=== PATIENT | female | born 1955 | race Caucasian/White ===

== ENCOUNTER 2017-09-18 17:39 | Inpatient (IN) | payer MEDICARE, MEDICAID ==
[~2017-09-18] VITALS: Ht 177.8 cm; Wt 90.9 kg
[2017-09-18] MEDS ORDERED: RAME8TAB8 PO (18:32)
[2017-09-18] MEDS ORDERED: QUET200T PO (18:32)
[2017-09-18] MEDS ORDERED: IBUP-2070 PO (18:32)
[2017-09-18] MEDS ORDERED: DIAZ10 PO (18:32)
[2017-09-18] MEDS ORDERED: BACL10TA PO (18:32)
[2017-09-18] MEDS ORDERED: ZOLP10TA7 PO (18:32)
[2017-09-18] MEDS ORDERED: IBUPROFEN 600 MG TABLET PO ONE (18:45)
[2017-09-18] MEDS ORDERED: LORazepam 1 MG TABLET PO ONE (18:45)
[2017-09-18 19:26] LABS: BASOPHILS % (AUTO) 0.9 % (0.0-2.0); EOSINOPHILS % (AUTO) 3.8 % (1.0-6.0); HEMATOCRIT 36.7 % (36-46); LYMPHOCYTES # (AUTO) 2.3 K/uL (1.0-4.8); LYMPHOCYTES % (AUTO) 20.8 % (22.0-44.0); MEAN CORPUSCULAR HEMOGLOBIN 26.7 pg (26.0-34.0); MEAN CORPUSCULAR HGB CONC 32.6 G/dL (31.0-37.0); MEAN CORPUSCULAR VOLUME 82 fL (80-100); MONOCYTES # (AUTO) 1.3 K/uL (0.1-1.0); MONOCYTES % (AUTO) 11.3 % (2.0-9.0); NEUTROPHILS # (AUTO) 7.1 K/uL (1.8-7.7); NEUTROPHILS % (AUTO) 63.2 % (40.0-70.0); PLATELET COUNT (AUTO) 377 K/uL (150-450); RED BLOOD CELL COUNT(AUTO) 4.48 MIL/uL (4.00-5.20)
[2017-09-18 19:39] LABS: ANION GAP 7 mmol/L (8-16); CALCIUM, TOTAL 9.1 mg/dL (8.8-10.5); CARBON DIOXIDE 29 mmol/L (22-29); CHLORIDE 103 mmol/L (98-107); CREATININE 0.75 mg/dL (0.60-1.30); GLOMERULAR FILTR. RATE CALC > 60 mL/min (>60); GLUCOSE,RANDOM 113 mg/dL (70-110); POTASSIUM 4.3 mmol/L (3.5-5.1); SODIUM SERUM 139 mmol/L (136-145); UREA NITROGEN, BLOOD 28 mg/dL (7-18)
[2017-09-18 19:44] LABS: ALANINE AMINOTRANSFERASE 41 U/L (12-78); ALBUMIN 2.8 g/dL (3.4-5.0); ALKALINE PHOSPHATASE 110 U/L (46-116); ASPARTATE AMINOTRANSFERASE 31 U/L (15-37); BILIRUBIN,TOTAL 0.3 mg/dL (0.1-1.0); TOTAL PROTEIN, SERUM 7.6 g/dL (6.4-8.2)
[2017-09-18 22:31] VITALS: BP 105/63
[2017-09-19] VITALS (7 sets, daily range): BP systolic 117–153; BP diastolic 64–84
[2017-09-19] MEDS ORDERED: ONDANSETRON HCL 4 MG/2 ML VIAL IVP PRN
[2017-09-19] MEDS ORDERED: IPRATROPIUM BROMIDE 0.5 MG/2.5 ML NEB SOLUTION NEB PRN
[2017-09-19] MEDS ORDERED: 0.9% SODIUM CHLORIDE 10 ML SYRINGE IVP PRN
[2017-09-19] MEDS ORDERED: ZOLPIDEM TARTRATE 5 MG TABLET PO PRN
[2017-09-19] MEDS ORDERED: ALBUTEROL SULFATE 2.5 MG/0.5 ML NEB SOLUTION NEB PRN
[2017-09-19] MEDS: IPRATROPIUM BROMIDE 0.5 MG/2.5 ML NEB SOLUTION NEB SCH ×4 (02:08→20:45)
[2017-09-19] MEDS: ALBUTEROL SULFATE 2.5 MG/0.5 ML NEB SOLUTION NEB SCH ×4 (02:08→20:45)
[2017-09-19] MEDS: ZOLPIDEM TARTRATE 10 MG TABLET PO PRN ×2 (02:37→20:36)
[2017-09-19 05:52] LABS: BASOPHILS % (AUTO) 0.8 % (0.0-2.0); EOSINOPHILS % (AUTO) 5.5 % (1.0-6.0); HEMATOCRIT 34.4 % (36-46); HEMOGLOBIN 11.6 g/dL (12.0-16.0); LYMPHOCYTES # (AUTO) 2.4 K/uL (1.0-4.8); LYMPHOCYTES % (AUTO) 28.4 % (22.0-44.0); MEAN CORPUSCULAR HEMOGLOBIN 27.3 pg (26.0-34.0); MEAN CORPUSCULAR HGB CONC 33.6 G/dL (31.0-37.0); MEAN CORPUSCULAR VOLUME 81 fL (80-100); MONOCYTES % (AUTO) 11.9 % (2.0-9.0); NEUTROPHILS # (AUTO) 4.5 K/uL (1.8-7.7); NEUTROPHILS % (AUTO) 53.4 % (40.0-70.0); PLATELET COUNT (AUTO) 401 K/uL (150-450); RED BLOOD CELL COUNT(AUTO) 4.23 MIL/uL (4.00-5.20); RED CELL DISTRIBUTION WIDTH 13.8 % (11.5-14.5)
[2017-09-19 07:08] LABS: ANION GAP 7 mmol/L (8-16); CALCIUM, TOTAL 8.9 mg/dL (8.8-10.5); CARBON DIOXIDE 30 mmol/L (22-29); CHLORIDE 105 mmol/L (98-107); CREATININE 0.65 mg/dL (0.60-1.30); GLOMERULAR FILTR. RATE CALC > 60 mL/min (>60); GLUCOSE,RANDOM 95 mg/dL (70-110); POTASSIUM 4.1 mmol/L (3.5-5.1); SODIUM SERUM 142 mmol/L (136-145); THYROID STIMULATING HORMONE 2.72 uIU/mL (0.36-3.74); UREA NITROGEN, BLOOD 21 mg/dL (7-18)
[2017-09-19] MEDS: PANTOPRAZOLE SODIUM 40 MG/VIAL IVP SCH (09:43)
[2017-09-19] MEDS: HYDROCODONE/ACETAMINOPHEN 5-325 MG TABLET PO PRN (09:43)
[2017-09-19] MEDS: HEPARIN SODIUM,PORCINE 5,000 UNITS/ML VIAL SQ SCH ×4 (09:45→23:28)
[2017-09-19] MEDS ORDERED: SODIUM CL IRRIG SOLN BOTTLE 250 ML IRRIG ONE (13:48)
[2017-09-19] MEDS: DIAZEPAM 5 MG TABLET PO SCH (20:18)
[2017-09-19] MEDS: BACLOFEN 10 MG TABLET PO SCH (20:19)
[2017-09-19] MEDS: QUEtiapine FUMARATE 200 MG TABLET PO SCH (20:19)
[2017-09-19] MEDS: MORPHINE SULFATE 4 MG/ML SYRINGE IVP PRN (22:04)
[2017-09-20] MEDS: ALBUTEROL SULFATE 2.5 MG/0.5 ML NEB SOLUTION NEB SCH ×4 (01:48→20:38)
[2017-09-20] MEDS: IPRATROPIUM BROMIDE 0.5 MG/2.5 ML NEB SOLUTION NEB SCH ×4 (01:48→20:38)
[2017-09-20 04:31] VITALS: BP 142/73
[2017-09-20 06:06] LABS: BASOPHILS % (AUTO) 1.2 % (0.0-2.0); EOSINOPHILS % (AUTO) 2.9 % (1.0-6.0); HEMATOCRIT 34.7 % (36-46); HEMOGLOBIN 11.8 g/dL (12.0-16.0); LYMPHOCYTES # (AUTO) 3.4 K/uL (1.0-4.8); LYMPHOCYTES % (AUTO) 33.3 % (22.0-44.0); MEAN CORPUSCULAR HEMOGLOBIN 27.3 pg (26.0-34.0); MEAN CORPUSCULAR HGB CONC 33.9 G/dL (31.0-37.0); MEAN CORPUSCULAR VOLUME 81 fL (80-100); MONOCYTES % (AUTO) 10.2 % (2.0-9.0); NEUTROPHILS # (AUTO) 5.4 K/uL (1.8-7.7); NEUTROPHILS % (AUTO) 52.4 % (40.0-70.0); PLATELET COUNT (AUTO) 430 K/uL (150-450); RED BLOOD CELL COUNT(AUTO) 4.31 MIL/uL (4.00-5.20); RED CELL DISTRIBUTION WIDTH 13.8 % (11.5-14.5)
[2017-09-20 06:37] LABS: ANION GAP 10 mmol/L (8-16); CARBON DIOXIDE 25 mmol/L (22-29); CHLORIDE 104 mmol/L (98-107); GLOMERULAR FILTR. RATE CALC > 60 mL/min (>60); GLUCOSE,RANDOM 100 mg/dL (70-110); POTASSIUM 3.9 mmol/L (3.5-5.1); SODIUM SERUM 139 mmol/L (136-145); UREA NITROGEN, BLOOD 16 mg/dL (7-18)
[2017-09-20 07:27] VITALS: BP 144/77
[2017-09-20] MEDS: HEPARIN SODIUM,PORCINE 5,000 UNITS/ML VIAL SQ SCH ×3 (08:00→23:30)
[2017-09-20 11:43] VITALS: BP 138/74
[2017-09-20] MEDS: PANTOPRAZOLE SODIUM 40 MG/VIAL IVP SCH (11:46)
[2017-09-20] MEDS ORDERED: RINGERS SOLUTION,LACTATED 1,000 ML IV ONE ×2 (14:30→18:14)
[2017-09-20 15:51] VITALS: BP 128/82
[2017-09-20] MEDS ORDERED: CLINDAMYCIN PHOS 150 MG/ML 4 ML VIAL ONE (17:18)
[2017-09-20] MEDS ORDERED: SODIUM CHLORIDE 0.9% 100 ML ONE (17:19)
[2017-09-20 20:00] VITALS: BP 152/88
[2017-09-20] MEDS: HYDROCODONE/ACETAMINOPHEN 5-325 MG TABLET PO PRN (20:20)
[2017-09-20] MEDS: BACLOFEN 10 MG TABLET PO SCH (21:29)
[2017-09-20] MEDS: QUEtiapine FUMARATE 200 MG TABLET PO SCH (21:29)
[2017-09-20] MEDS: DIAZEPAM 5 MG TABLET PO SCH (21:30)
[2017-09-20] MEDS: ROZEREM 8 MG PO SCH ×2 (21:32→21:34)
[2017-09-20 23:27] VITALS: BP 130/67
[2017-09-21] MEDS: MORPHINE SULFATE 4 MG/ML SYRINGE IVP PRN ×2 (00:29→15:21)
[2017-09-21] MEDS: ALBUTEROL SULFATE 2.5 MG/0.5 ML NEB SOLUTION NEB SCH ×4 (02:00→20:00)
[2017-09-21] MEDS: IPRATROPIUM BROMIDE 0.5 MG/2.5 ML NEB SOLUTION NEB SCH ×4 (02:00→20:00)
[2017-09-21 03:10] VITALS: BP 115/67
[2017-09-21] MEDS ORDERED: PROPOFOL 1% 20 ML VIAL IVP ONE (04:59)
[2017-09-21] MEDS ORDERED: FentaNYL CITRATE-PF 100 MCG/2 ML VIAL IVP ONE (04:59)
[2017-09-21] MEDS ORDERED: DEXAMETHASONE SOD PHOS 4 MG/ML VIAL IVP ONE (04:59)
[2017-09-21] MEDS ORDERED: ONDANSETRON HCL 4 MG/2 ML VIAL IVP ONE (04:59)
[2017-09-21] MEDS ORDERED: MIDAZOLAM HCL 2 MG/2 ML VIAL IVP ONE (04:59)
[2017-09-21] MEDS ORDERED: LIDOCAINE HCL/PF 2% 5 ML VIAL IM ONE (04:59)
[2017-09-21] MEDS: HYDROCODONE/ACETAMINOPHEN 5-325 MG TABLET PO PRN ×2 (06:48→18:06)
[2017-09-21] MEDS: PANTOPRAZOLE SODIUM 40 MG/VIAL IVP SCH (08:39)
[2017-09-21] MEDS: HEPARIN SODIUM,PORCINE 5,000 UNITS/ML VIAL SQ SCH ×2 (08:39→17:13)
[2017-09-21] MEDS: ASCORBIC ACID 500 MG TABLET PO SCH (08:40)
[2017-09-21] MEDS: AMINO ACIDS/PROTEIN HYDROLYS 30 ML TUBE PO SCH (08:40)
[2017-09-21] MEDS: ZINC SULFATE 220 MG CAPSULE PO SCH (08:40)
[2017-09-21] MEDS: MULTIVITAMINS WITH MINERALS, THERAPEUTIC TABLET PO SCH (08:40)
[2017-09-21 09:32] VITALS: BP 108/61
[2017-09-21 12:40] VITALS: BP 130/73
[2017-09-21] MEDS ORDERED: INFLUENZA VIRUS VACCINE QVS 2017-18 (3YR+)/PF 60 MCG/0.5 ML SYRINGE IM ONE (15:15)
[2017-09-21 15:22] VITALS: BP 133/67
[2017-09-21] MEDS: DIAZEPAM 5 MG TABLET PO SCH (20:09)
[2017-09-21] MEDS: ROZEREM 8 MG PO SCH (20:09)
[2017-09-21] MEDS: BACLOFEN 10 MG TABLET PO SCH (20:09)
[2017-09-21] MEDS: QUEtiapine FUMARATE 200 MG TABLET PO SCH (20:09)
[2017-09-21] MEDS: ZOLPIDEM TARTRATE 10 MG TABLET PO PRN (20:09)
[2017-09-21 20:58] VITALS: BP 164/92
[2017-09-22] VITALS (7 sets, daily range): BP systolic 122–157; BP diastolic 71–98
[2017-09-22] MEDS: HEPARIN SODIUM,PORCINE 5,000 UNITS/ML VIAL SQ SCH ×3 (00:05→18:05)
[2017-09-22] MEDS: ALBUTEROL SULFATE 2.5 MG/0.5 ML NEB SOLUTION NEB SCH ×4 (02:00→20:00)
[2017-09-22] MEDS: IPRATROPIUM BROMIDE 0.5 MG/2.5 ML NEB SOLUTION NEB SCH ×4 (02:00→20:00)
[2017-09-22] MEDS: AMINO ACIDS/PROTEIN HYDROLYS 30 ML TUBE PO SCH (08:00)
[2017-09-22] MEDS: PANTOPRAZOLE SODIUM 40 MG/VIAL IVP SCH (10:13)
[2017-09-22] MEDS: ASCORBIC ACID 500 MG TABLET PO SCH (10:13)
[2017-09-22] MEDS: MULTIVITAMINS WITH MINERALS, THERAPEUTIC TABLET PO SCH (10:13)
[2017-09-22] MEDS: ZINC SULFATE 220 MG CAPSULE PO SCH (10:13)
[2017-09-22] MEDS: HYDROCODONE/ACETAMINOPHEN 5-325 MG TABLET PO PRN ×2 (10:14→22:33)
[2017-09-22] MEDS ORDERED: SODIUM CHLORIDE 0.9% IRRIG BTL 1,000 ML IRRIG ONE (11:03)
[2017-09-22] MEDS ORDERED: SODIUM CHLORIDE 0.9% 500 ML IV ONE (11:19)
[2017-09-22] MEDS: CLINDAMYCIN 600 MG/D5% WATER 50 ML IV SCH ×2 (11:22→18:04)
[2017-09-22] MEDS: BACLOFEN 10 MG TABLET PO SCH (22:32)
[2017-09-22] MEDS: QUEtiapine FUMARATE 200 MG TABLET PO SCH (22:33)
[2017-09-22] MEDS: ROZEREM 8 MG PO SCH (22:33)
[2017-09-22] MEDS: DIAZEPAM 5 MG TABLET PO SCH (22:33)
[2017-09-23] MEDS: CLINDAMYCIN 600 MG/D5% WATER 50 ML IV SCH ×3 (00:56→18:02)
[2017-09-23] MEDS: HEPARIN SODIUM,PORCINE 5,000 UNITS/ML VIAL SQ SCH ×4 (00:56→22:56)
[2017-09-23] MEDS: IPRATROPIUM BROMIDE 0.5 MG/2.5 ML NEB SOLUTION NEB SCH ×4 (02:00→20:00)
[2017-09-23] MEDS: ALBUTEROL SULFATE 2.5 MG/0.5 ML NEB SOLUTION NEB SCH ×4 (02:00→20:00)
[2017-09-23] MEDS: HYDROCODONE/ACETAMINOPHEN 5-325 MG TABLET PO PRN ×3 (02:45→15:00)
[2017-09-23] MEDS: ZOLPIDEM TARTRATE 10 MG TABLET PO PRN (02:53)
[2017-09-23] MEDS: AMINO ACIDS/PROTEIN HYDROLYS 30 ML TUBE PO SCH (08:00)
[2017-09-23 08:08] VITALS: BP 129/74
[2017-09-23] MEDS: ASCORBIC ACID 500 MG TABLET PO SCH (08:17)
[2017-09-23] MEDS: PANTOPRAZOLE SODIUM 40 MG/VIAL IVP SCH (08:17)
[2017-09-23] MEDS: MULTIVITAMINS WITH MINERALS, THERAPEUTIC TABLET PO SCH (08:17)
[2017-09-23] MEDS: ZINC SULFATE 220 MG CAPSULE PO SCH (08:20)
[2017-09-23 11:31] VITALS: BP 121/57
[2017-09-23 15:10] VITALS: BP 123/74
[2017-09-23 19:33] VITALS: BP 137/81
[2017-09-23] MEDS ORDERED: SODIUM PHOS/SODIUM BIPHOS 133 ML ENEMA PR ONE (21:45)
[2017-09-23] MEDS: DIAZEPAM 5 MG TABLET PO SCH (22:55)
[2017-09-23] MEDS: DOCUSATE SODIUM 100 MG CAPSULE PO SCH (22:55)
[2017-09-23] MEDS: BACLOFEN 10 MG TABLET PO SCH (22:56)
[2017-09-23] MEDS: ROZEREM 8 MG PO SCH (22:56)
[2017-09-23] MEDS: QUEtiapine FUMARATE 200 MG TABLET PO SCH (22:56)
[2017-09-23 23:00] VITALS: BP 151/77
[2017-09-24] MEDS: ZOLPIDEM TARTRATE 10 MG TABLET PO PRN (00:54)
[2017-09-24] MEDS: CLINDAMYCIN 600 MG/D5% WATER 50 ML IV SCH ×3 (00:54→16:53)
[2017-09-24] MEDS: HYDROCODONE/ACETAMINOPHEN 5-325 MG TABLET PO PRN (00:54)
[2017-09-24] MEDS: IPRATROPIUM BROMIDE 0.5 MG/2.5 ML NEB SOLUTION NEB SCH ×4 (02:00→20:00)
[2017-09-24] MEDS: ALBUTEROL SULFATE 2.5 MG/0.5 ML NEB SOLUTION NEB SCH ×4 (02:00→20:00)
[2017-09-24 05:30] VITALS: BP 136/80
[2017-09-24 07:40] VITALS: BP 114/80
[2017-09-24] MEDS: HEPARIN SODIUM,PORCINE 5,000 UNITS/ML VIAL SQ SCH ×2 (07:55→14:37)
[2017-09-24] MEDS: ASCORBIC ACID 500 MG TABLET PO SCH (07:55)
[2017-09-24] MEDS: PANTOPRAZOLE SODIUM 40 MG/VIAL IVP SCH (07:55)
[2017-09-24] MEDS: ZINC SULFATE 220 MG CAPSULE PO SCH (07:55)
[2017-09-24] MEDS: MULTIVITAMINS WITH MINERALS, THERAPEUTIC TABLET PO SCH (07:55)
[2017-09-24] MEDS: DOCUSATE SODIUM 100 MG CAPSULE PO SCH ×2 (07:55→21:00)
[2017-09-24] MEDS: AMINO ACIDS/PROTEIN HYDROLYS 30 ML TUBE PO SCH (07:58)
[2017-09-24 11:33] VITALS: BP 145/94
[2017-09-24] MEDS ORDERED: BISACODYL 10 MG RECTAL RECTAL SUPPOSITORY PR PRN (13:30)
[2017-09-24] MEDS ORDERED: SODIUM PHOS/SODIUM BIPHOS 133 ML ENEMA PR PRN (13:30)
[2017-09-24 15:45] VITALS: BP 144/96
[2017-09-24] MEDS: IBUPROFEN 600 MG TABLET PO PRN (16:53)
[2017-09-24 19:31] VITALS: BP 125/78
[2017-09-24] MEDS: QUEtiapine FUMARATE 200 MG TABLET PO SCH (22:06)
[2017-09-24] MEDS: ROZEREM 8 MG PO SCH (22:06)
[2017-09-24] MEDS: DIAZEPAM 5 MG TABLET PO SCH (22:06)
[2017-09-24] MEDS: BACLOFEN 10 MG TABLET PO SCH (22:06)
[2017-09-24] MEDS: ACETAMINOPHEN 325 MG TABLET PO PRN (22:11)
[2017-09-25] VITALS (7 sets, daily range): BP systolic 117–148; BP diastolic 70–86
[2017-09-25] MEDS: HEPARIN SODIUM,PORCINE 5,000 UNITS/ML VIAL SQ SCH ×4 (00:55→23:31)
[2017-09-25] MEDS: CLINDAMYCIN 600 MG/D5% WATER 50 ML IV SCH ×3 (00:55→18:21)
[2017-09-25] MEDS: IPRATROPIUM BROMIDE 0.5 MG/2.5 ML NEB SOLUTION NEB SCH ×4 (02:00→20:00)
[2017-09-25] MEDS: ALBUTEROL SULFATE 2.5 MG/0.5 ML NEB SOLUTION NEB SCH ×4 (02:00→20:00)
[2017-09-25] MEDS: ZOLPIDEM TARTRATE 10 MG TABLET PO PRN ×2 (02:10→23:39)
[2017-09-25] MEDS: ZINC SULFATE 220 MG CAPSULE PO SCH (08:31)
[2017-09-25] MEDS: ASCORBIC ACID 500 MG TABLET PO SCH (08:31)
[2017-09-25] MEDS: MULTIVITAMINS WITH MINERALS, THERAPEUTIC TABLET PO SCH (08:32)
[2017-09-25] MEDS: PANTOPRAZOLE SODIUM 40 MG/VIAL IVP SCH (08:33)
[2017-09-25] MEDS: DOCUSATE SODIUM 100 MG CAPSULE PO SCH ×2 (08:33→21:00)
[2017-09-25] MEDS: AMINO ACIDS/PROTEIN HYDROLYS 30 ML TUBE PO SCH (08:34)
[2017-09-25] MEDS: IBUPROFEN 600 MG TABLET PO PRN ×3 (08:52→23:37)
[2017-09-25] MEDS: ACETAMINOPHEN 325 MG TABLET PO PRN ×2 (11:29→21:51)
[2017-09-25] MEDS ORDERED: SODIUM CHLORIDE 0.9% 250 ML IV ONE (18:23)
[2017-09-25] MEDS: DIAZEPAM 5 MG TABLET PO SCH (21:51)
[2017-09-25] MEDS: ROZEREM 8 MG PO SCH (21:51)
[2017-09-25] MEDS: BACLOFEN 10 MG TABLET PO SCH (21:51)
[2017-09-25] MEDS: QUEtiapine FUMARATE 200 MG TABLET PO SCH (21:51)
[2017-09-26] MEDS: IPRATROPIUM BROMIDE 0.5 MG/2.5 ML NEB SOLUTION NEB SCH ×3 (02:00→14:00)
[2017-09-26] MEDS: ALBUTEROL SULFATE 2.5 MG/0.5 ML NEB SOLUTION NEB SCH ×3 (02:00→14:00)
[2017-09-26] MEDS: CLINDAMYCIN 600 MG/D5% WATER 50 ML IV SCH ×2 (03:17→08:49)
[2017-09-26 04:30] VITALS: BP 123/77
[2017-09-26 07:35] VITALS: BP 148/66
[2017-09-26] MEDS: IBUPROFEN 600 MG TABLET PO PRN (08:45)
[2017-09-26] MEDS: MULTIVITAMINS WITH MINERALS, THERAPEUTIC TABLET PO SCH (08:46)
[2017-09-26] MEDS: ASCORBIC ACID 500 MG TABLET PO SCH (08:46)
[2017-09-26] MEDS: ZINC SULFATE 220 MG CAPSULE PO SCH (08:46)
[2017-09-26] MEDS: DOCUSATE SODIUM 100 MG CAPSULE PO SCH ×2 (08:46→09:00)
[2017-09-26] MEDS: PANTOPRAZOLE SODIUM 40 MG/VIAL IVP SCH (08:47)
[2017-09-26] MEDS: HEPARIN SODIUM,PORCINE 5,000 UNITS/ML VIAL SQ SCH (08:47)
[2017-09-26 11:36] VITALS: BP 139/75
[2017-09-26] MEDS: ACETAMINOPHEN 325 MG TABLET PO PRN (12:38)
[2017-09-26 15:55] VITALS: BP 141/78
[2017-09-26] MEDS: HYDROCODONE/ACETAMINOPHEN 5-325 MG TABLET PO PRN (16:05)
== END 2017-09-26 16:15 | DRG 853 ==
LOC: EDBD 17:40 → EMS 17:40 → 6N 20:52
PROVIDERS: ADMIT Internal Medicine; ATTEND Internal Medicine
PROC: 0KBP0ZZ Excision of Left Hip Muscle, Open Approach (ICD-10-PCS; principal; 2017-09-20 14:00)
DX: A41.9 Sepsis, unspecified organism (principal); L89.154 Pressure ulcer of sacral region, stage 4; G82.20 Paraplegia, unspecified; G35 Multiple sclerosis; F20.9 Schizophrenia, unspecified; I10 Essential (primary) hypertension; K59.00 Constipation, unspecified; Z88.0 Allergy status to penicillin; Z88.8 Allergy status to other drugs, medicaments and biological substances; Z90.710 Acquired absence of both cervix and uterus; Z88.1 Allergy status to other antibiotic agents; Z91.041 Radiographic dye allergy status; Z28.21 Immunization not carried out because of patient refusal
CPT/HCPCS: 83735; 84443; 87070; 87081; 87205; 88304; 90471; 94640; 97163; 97165; 99285; C9113; J1100; J1644; J2250; J2270; J2405; J2704; J3010; J3490; J7040; J7050; J7120; S0077

== ENCOUNTER → 2017-10-09 | Outpatient (CLI) | payer MEDICARE, MEDICAID ==
[~2017-10-09] VITALS: Ht 177.8 cm; Wt 90.1 kg
[~2017-10-09] MED LIST: ACET-784 PO; ASCO500 PO; BACL10TA PO; BISA10S PR; DIAZ10 PO; DSS100 PO; HEPA500041 SQ; HYDR-309 PO; IBUP-2070 PO; LORA10TA7 PO; METH1T PO; MOM30 PO; MULT-1192 PO; OXYB5XL PO; PANT40TA25 PO; QUET200T PO; RAME8TAB8 PO; ZINC220 PO; ZOLP10TA7 PO
[2017-10-09 08:59] VITALS: BP 114/61
== END | disposition home or self-care (01) ==
LOC: HBOWC 08:30
PROVIDERS: ATTEND Surgery Plastic and Reconstructive Surgery
DX: L89.154 Pressure ulcer of sacral region, stage 4 (principal); L89.614 Pressure ulcer of right heel, stage 4; S91.301D Unspecified open wound, right foot, subsequent encounter; G82.20 Paraplegia, unspecified; I10 Essential (primary) hypertension; F20.9 Schizophrenia, unspecified; Z90.710 Acquired absence of both cervix and uterus; X58.XXXD Exposure to other specified factors, subsequent encounter
CPT/HCPCS: 11042; 11044; 11047

== ENCOUNTER → 2017-11-06 | Outpatient (CLI) | payer MEDICARE, MEDICAID ==
[~2017-11-06] MED LIST changes: +IBUPROFEN 200 MG TABLET PO ONE; +LIDOCAINE HCL 4% 50 ML SOLUTION TP ONE; +METR500 TP
[2017-11-06 08:45] VITALS: BP 122/73
== END | disposition home or self-care (01) ==
LOC: HBOWC 08:16
PROVIDERS: ATTEND Surgery Plastic and Reconstructive Surgery
DX: L89.154 Pressure ulcer of sacral region, stage 4 (principal); L89.614 Pressure ulcer of right heel, stage 4; I10 Essential (primary) hypertension; G82.20 Paraplegia, unspecified; F20.9 Schizophrenia, unspecified; Z90.710 Acquired absence of both cervix and uterus
CPT/HCPCS: 11044; 11047